=== PATIENT | female | born 2000 | race Caucasian/White ===

== ENCOUNTER 2024-02-11 00:04 | Emergency (ER) | payer BC ==
[~2024-02-11] VITALS: Ht 167.6 cm; Wt 61.4 kg
[2024-02-11] MEDS: ondansetron/PF 4mg/2ml inj IV ONE ×3 (00:20→06:39)
[2024-02-11 00:21] LABS: BASOPHILS # (AUTO) 0.1 X10'3 (0-0.2); BASOPHILS % (AUTO) 0.9 % (0-1); EOSINOPHILS # (AUTO) 0.1 X10'3 (0-0.9); EOSINOPHILS % (AUTO) 1.2 % (0-6); HEMATOCRIT 43.1 % (35.0-45.0); HEMOGLOBIN 14.3 g/dl (12.0-16.0); LYMPHOCYTES # (AUTO) 4.9 X10'3 (1.1-4.8); LYMPHOCYTES % (AUTO) 42.5 % (21-51); MEAN CORPUSCULAR HEMOGLOBIN 28.7 PG (27.0-31.0); MEAN CORPUSCULAR HGB CONC 33.3 g/dL (33.0-36.5); MEAN CORPUSCULAR VOLUME 86.3 FL (78-98); MEAN PLATELET VOLUME 8.6 FL (7.4-10.4); MONOCYTES % (AUTO) 8.4 % (2-12); NEUTROPHILS # (AUTO) 5.4 X10'3 (1.8-7.7); PLATELET COUNT 260 X10'3 (140-440); RED CELL DISTRIBUTION WIDTH 15.5 % (11.5-14.5); WHITE BLOOD COUNT 11.4 X10'3 (4.5-11.0)
[2024-02-11] MEDS: normal saline 1000ML IV soln IVB ONE ×2 (00:21→01:09)
[2024-02-11] MEDS: pantoprazole 40 MG vial IV ONE (00:23)
[2024-02-11 00:27] LABS: ALBUMIN 4.3 G/DL (3.4-5.0); ANION GAP 11 (8-16); BLOOD UREA NITROGEN 12 MG/DL (7-18); BUN/CREATININE RATIO 13.2 (10.0-20.0); CHLORIDE 109 MMOL/L (99-107); CREATININE 0.91 MG/DL (0.40-0.90); ETHANOL 233 MG/DL (<10); GLUCOSE 137 MG/DL (70-104); POTASSIUM 3.1 MMOL/L (3.5-5.1); SODIUM 144 MMOL/L (135-145); TOTAL CARBON DIOXIDE 24.4 MMOL/L (24-32); eCRCL 92 ML/MIN; eGFR 78 ML/MIN
[2024-02-11 00:32] LABS: HCG SERUM QL NEGATIVE
[2024-02-11 06:32] VITALS: TEMP 98.2
[2024-02-11] MEDS: ondansetron 4mg rapidly disintigrating tab PO ONE (08:44)
[2024-02-11 08:56] VITALS: BP 98/71; PULSE 77; RESP 16; O2SAT 100
== END 2024-02-11 08:58 | disposition home or self-care (01) ==
LOC: ER 00:05
DX: F10.129 Alcohol abuse with intoxication, unspecified (principal); Y90.7 Blood alcohol level of 200-239 mg/100 ml
CPT/HCPCS: 36415; 80048; 80320; 84703; 85025; 96361; 96365; 96375; 96376; 99285; J2405; J2470; J7030; 80305